=== PATIENT | female | born 1980 ===

== ENCOUNTER → 2018-12-05 | Outpatient (RCR) | payer BC | LOC: EDSEX → PT 11-29 15:19 | PROVIDERS: ATTEND Specialist | DX: M22.2X2 Patellofemoral disorders, left knee (principal); M22.2X1 Patellofemoral disorders, right knee ==

== ENCOUNTER 2018-12-19 10:00 | Outpatient (RCR) | payer BC | END 2019-01-05 | LOC: PT 10:00 | PROVIDERS: ATTEND Specialist | DX: M25.862 Other specified joint disorders, left knee (principal); M25.861 Other specified joint disorders, right knee ==